=== PATIENT | male | born 1975 | race Caucasian/White ===

== ENCOUNTER 2022-09-24 11:28 | Emergency (ER) | payer OTHER ==
[~2022-09-24] VITALS: Ht 180.3 cm; Wt 109.1 kg
[~2022-09-24 11:28] MED LIST: AMLO10TA55 PO; BENA-8 PO; CARV25 PO; HYDR25TA PO; SIMV-260 PO
[2022-09-24] MEDS ORDERED: GELATIN SPONGE,ABSORBABLE 50 MM TP ONE (11:45)
[2022-09-24] MEDS ORDERED: CARV12.530 PO (11:55)
[2022-09-24] MEDS ORDERED: ATOR40TA71 PO (11:55)
[2022-09-24] MEDS ORDERED: ASPI-1444 PO (11:55)
[2022-09-24] MEDS ORDERED: LOSA100T58 PO (11:55)
[2022-09-24] MEDS ORDERED: WARF-57 PO (11:55)
[2022-09-24] MEDS ORDERED: HYDR10TA31 PO (11:55)
[2022-09-24] MEDS ORDERED: FURO40TA5 PO (11:55)
[2022-09-24] MEDS ORDERED: AmLODIPine BESYLATE 5 MG TABLET PO ONE (12:00)
[2022-09-24 12:33] LABS: BASOPHILS % (AUTO) 0.5 % (0.0-2.0); HEMATOCRIT 39.1 % (41-53); HEMOGLOBIN 13.2 g/dL (13.5-17.5); LYMPHOCYTES # (AUTO) 1.4 K/uL (1.0-4.8); LYMPHOCYTES % (AUTO) 12.9 % (22.0-44.0); MEAN CORPUSCULAR HEMOGLOBIN 27.6 pg (26.0-34.0); MEAN CORPUSCULAR HGB CONC 33.7 G/dL (31.0-37.0); MEAN CORPUSCULAR VOLUME 82 fL (80-100); MONOCYTES # (AUTO) 0.7 K/uL (0.1-1.0); MONOCYTES % (AUTO) 6.1 % (2.0-9.0); NEUTROPHILS # (AUTO) 8.7 K/uL (1.8-7.7); NEUTROPHILS % (AUTO) 78.5 % (40.0-70.0); PLATELET COUNT (AUTO) 349 K/uL (150-450); RED BLOOD CELL COUNT(AUTO) 4.78 MIL/uL (4.50-5.90); RED CELL DISTRIBUTION WIDTH 15.4 % (11.5-14.5)
[2022-09-24 13:02] LABS: PROTHROMBIN TIME 77.2 SEC (9.4-11.6)
[2022-09-24 13:45] VITALS: BP 170/93
== END 2022-09-24 14:26 | disposition home or self-care (01) ==
LOC: EMS 11:48
DX: K06.8 Other specified disorders of gingiva and edentulous alveolar ridge (principal); I25.10 Atherosclerotic heart disease of native coronary artery without angina pectoris; E78.00 Pure hypercholesterolemia, unspecified; I10 Essential (primary) hypertension
CPT/HCPCS: 85025; 85610; 85730; 99283